=== PATIENT | male | born 1965 | race African-American/Black ===

== ENCOUNTER 2023-04-08 07:56 | Emergency (ER) | payer MEDICAID ==
[~2023-04-08] VITALS: Ht 180.3 cm; Wt 59.0 kg
[2023-04-08 08:04] VITALS: BP 127/53
[2023-04-08 08:34] LABS: CLARITY URINE CLOUDY (CLEAR); COLOR URINE YELLOW (YELLOW); KETONES URINE NEGATIVE (NEGATIVE); LEUKOCYTE ESTERASE URINE 2+ (NEGATIVE); NITRITE URINE POSITIVE (NEGATIVE); OCCULT BLOOD URINE TRACE (NEGATIVE); PROTEIN URINE NEGATIVE (NEGATIVE); SPECIFIC GRAVITY URINE 1.015 (1.005-1.030)
[2023-04-08] MEDS ORDERED: SULF1TAB48 MT (09:11)
[2023-04-08] MEDS ORDERED: SULFAMETHOXAZOLE/TRIMETHOPRIM 800/160MG TABLET PO SCH (09:15)
== END 2023-04-08 09:25 | disposition home or self-care (01) ==
LOC: ER 08:14
DX: G82.20 Paraplegia, unspecified (principal); Z98.890 Other specified postprocedural states
CPT/HCPCS: 81003; 87186; 99283

== ENCOUNTER 2023-08-09 10:42 | Emergency (ER) | payer MEDICAID ==
[~2023-08-09] VITALS: Ht 172.7 cm; Wt 66.0 kg
[~2023-08-09 10:42] MED LIST: SULF1TAB48 MT
[2023-08-09 10:59] VITALS: O2SAT 99
[2023-08-09] MEDS ORDERED: CEPHALEXIN 250MG CAPSULE PO ONE (12:00)
[2023-08-09 12:09] LABS: CLARITY URINE CLOUDY (CLEAR); COLOR URINE YELLOW (YELLOW); GLUCOSE URINE NEGATIVE (NEGATIVE); KETONES URINE NEGATIVE (NEGATIVE); LEUKOCYTE ESTERASE URINE 2+ (NEGATIVE); NITRITE URINE POSITIVE (NEGATIVE); OCCULT BLOOD URINE 1+ (NEGATIVE); PH URINE 7.5 (4.5-8.0); PROTEIN URINE TRACE (NEGATIVE); SPECIFIC GRAVITY URINE 1.018 (1.005-1.030); UROBILINOGEN URINE 0.2 E.U./dL (0.2-1.0)
[2023-08-09] MEDS ORDERED: CEPH500T MT (12:29)
[2023-08-09 12:59] LABS: BACTERIA URINE 4+; SQUAMOUS EPITHELIAL CELL URINE FEW /lpf (RARE/1+)
[2023-08-09 13:00] LABS: RBC URINE 0-2 /hpf (0-2)
[2023-08-09 13:11] VITALS: BP 112/68; PULSE 79; RESP 18; TEMP 98
== END 2023-08-09 13:12 | disposition home or self-care (01) ==
LOC: ER 10:42
DX: N39.0 Urinary tract infection, site not specified (principal)
CPT/HCPCS: 81003; 99283

== ENCOUNTER 2023-08-27 08:01 | Emergency (ER) | payer MEDICAID ==
[~2023-08-27] VITALS: Ht 172.7 cm; Wt 64.0 kg
[~2023-08-27 08:01] MED LIST changes: +CEPH500T MT
[2023-08-27 08:02] VITALS: PULSE 86
[2023-08-27 08:03] VITALS: BP 117/79; RESP 16; TEMP 98.4; O2SAT 100
[2023-08-27] MEDS ORDERED: NITR-87 MT (08:48)
[2023-08-27 08:51] LABS: CLARITY URINE CLOUDY (CLEAR); COLOR URINE YELLOW (YELLOW); GLUCOSE URINE NEGATIVE (NEGATIVE); KETONES URINE NEGATIVE (NEGATIVE); LEUKOCYTE ESTERASE URINE 2+ (NEGATIVE); NITRITE URINE NEGATIVE (NEGATIVE); OCCULT BLOOD URINE 1+ (NEGATIVE); PROTEIN URINE TRACE (NEGATIVE); SPECIFIC GRAVITY URINE 1.016 (1.005-1.030)
[2023-08-27 09:28] LABS: BACTERIA URINE 4+; SQUAMOUS EPITHELIAL CELL URINE 1+ /lpf (RARE/1+)
[2023-08-27 09:29] LABS: WBC URINE 25-50 /hpf (0-2)
== END 2023-08-27 08:58 | disposition home or self-care (01) ==
LOC: ER 08:01
DX: N39.0 Urinary tract infection, site not specified (principal)
CPT/HCPCS: 81003; 87077; 87186; 99283

== ENCOUNTER 2023-10-31 08:36 | Emergency (ER) | payer MEDICAID ==
[~2023-10-31] VITALS: Ht 172.7 cm; Wt 66.0 kg
[~2023-10-31 08:36] MED LIST changes: +NITR-87 MT
[2023-10-31 08:54] VITALS: O2SAT 98
[2023-10-31 10:18] LABS: CLARITY URINE TURBID (CLEAR); COLOR URINE YELLOW (YELLOW); GLUCOSE URINE NEGATIVE (NEGATIVE); KETONES URINE NEGATIVE (NEGATIVE); LEUKOCYTE ESTERASE URINE 3+ (NEGATIVE); NITRITE URINE NEGATIVE (NEGATIVE); OCCULT BLOOD URINE 2+ (NEGATIVE); PH URINE 7.5 (4.5-8.0); PROTEIN URINE 2+ (NEGATIVE); SPECIFIC GRAVITY URINE 1.016 (1.005-1.030)
[2023-10-31] MEDS ORDERED: LEVO750T68 MT (10:30)
[2023-10-31] MEDS ORDERED: LEVOFLOXACIN 250MG TABLET PO ONE (10:30)
[2023-10-31 10:59] VITALS: BP 128/78; PULSE 70; RESP 16; TEMP 98.6
[2023-10-31 12:09] LABS: SQUAMOUS EPITHELIAL CELL URINE 1+ /lpf (RARE/1+); WBC URINE TNTC /hpf (0-2)
[2023-10-31 12:11] LABS: BACTERIA URINE 4+
== END 2023-10-31 11:12 | disposition home or self-care (01) ==
LOC: ER 08:36
DX: N39.0 Urinary tract infection, site not specified (principal); B96.20 Unspecified Escherichia coli [E. coli] as the cause of diseases classified elsewhere; Z16.39 Resistance to other specified antimicrobial drug; Z98.890 Other specified postprocedural states
CPT/HCPCS: 81003; 87077; 87186; 99283

== ENCOUNTER 2024-01-21 15:45 | Emergency (ER) | payer MEDICAID ==
[~2024-01-21] VITALS: Ht 172.7 cm; Wt 61.0 kg
[~2024-01-21 15:45] MED LIST changes: +LEVO750T68 MT
[2024-01-21 15:47] VITALS: O2SAT 98
[2024-01-21 16:14] LABS: CLARITY URINE TURBID (CLEAR); COLOR URINE YELLOW (YELLOW); GLUCOSE URINE NEGATIVE (NEGATIVE); KETONES URINE NEGATIVE (NEGATIVE); LEUKOCYTE ESTERASE URINE 3+ (NEGATIVE); NITRITE URINE POSITIVE (NEGATIVE); OCCULT BLOOD URINE 3+ (NEGATIVE); PROTEIN URINE 2+ (NEGATIVE); SPECIFIC GRAVITY URINE 1.016 (1.005-1.030)
[2024-01-21 16:27] LABS: BACTERIA URINE 2+; RBC URINE 25-50 /hpf (0-2); SQUAMOUS EPITHELIAL CELL URINE 1+ /lpf (RARE/1+); WBC URINE 50-100 /hpf (0-2); YEAST URINE NONE SEEN
[2024-01-21] MEDS ORDERED: LEVO750T68 MT (16:57)
[2024-01-21 17:06] VITALS: BP 131/76; PULSE 76; RESP 12; TEMP 98.3
== END 2024-01-21 17:07 | disposition home or self-care (01) ==
LOC: ER 15:45
DX: N39.0 Urinary tract infection, site not specified (principal)
CPT/HCPCS: 81003; 99283

== ENCOUNTER 2024-04-09 13:53 | Emergency (ER) | payer MEDICAID ==
[~2024-04-09] VITALS: Ht 172.7 cm; Wt 67.0 kg
[2024-04-09 14:13] VITALS: O2SAT 98
[2024-04-09 16:15] LABS: CLARITY URINE TURBID (CLEAR); COLOR URINE YELLOW (YELLOW); GLUCOSE URINE NEGATIVE (NEGATIVE); KETONES URINE NEGATIVE (NEGATIVE); LEUKOCYTE ESTERASE URINE 2+ (NEGATIVE); NITRITE URINE POSITIVE (NEGATIVE); OCCULT BLOOD URINE NEGATIVE (NEGATIVE); PH URINE 7.5 (4.5-8.0); PROTEIN URINE NEGATIVE (NEGATIVE); SPECIFIC GRAVITY URINE 1.018 (1.005-1.030)
[2024-04-09 16:33] LABS: BACTERIA URINE 4+; RBC URINE 0-2 /hpf (0-2); SQUAMOUS EPITHELIAL CELL URINE FEW /lpf (RARE/1+)
[2024-04-09 16:34] LABS: WBC URINE 50-100 /hpf (0-2)
[2024-04-09] MEDS ORDERED: CEPH500T MT (18:52)
[2024-04-09] MEDS: CEFTRIAXONE SODIUM 1G VIAL IM ONE (18:59)
[2024-04-09 19:07] VITALS: BP 6/67; PULSE 64; RESP 18; TEMP 97.9
== END 2024-04-09 19:09 | disposition home or self-care (01) ==
LOC: ER 13:53
DX: N39.0 Urinary tract infection, site not specified (principal); Z98.890 Other specified postprocedural states
CPT/HCPCS: 99283; 81003; 87086; 87186; 87077; 96372; J0696

== ENCOUNTER 2024-07-30 13:46 | Emergency (ER) | payer MEDICAID ==
[~2024-07-30] VITALS: Ht 172.7 cm; Wt 62.0 kg
[2024-07-30 14:15] VITALS: TEMP 98.1; O2SAT 99
[2024-07-30 16:49] LABS: CLARITY URINE CLOUDY (CLEAR); COLOR URINE YELLOW (YELLOW); GLUCOSE URINE NEGATIVE (NEGATIVE); KETONES URINE NEGATIVE (NEGATIVE); LEUKOCYTE ESTERASE URINE 2+ (NEGATIVE); NITRITE URINE POSITIVE (NEGATIVE); OCCULT BLOOD URINE 1+ (NEGATIVE); PROTEIN URINE NEGATIVE (NEGATIVE); SPECIFIC GRAVITY URINE 1.017 (1.005-1.030)
[2024-07-30] MEDS ORDERED: CEFP200T13 MT (17:09)
[2024-07-30] MEDS ORDERED: PHEN-910 MT (17:10)
[2024-07-30 17:19] VITALS: BP 112/70; PULSE 80; RESP 15; O2SAT 99
[2024-07-30 17:35] LABS: BACTERIA URINE 4+; SQUAMOUS EPITHELIAL CELL URINE FEW /lpf (RARE/1+)
== END 2024-07-30 17:19 | disposition home or self-care (01) ==
LOC: ER 13:46
DX: N39.0 Urinary tract infection, site not specified (principal); Z79.899 Other long term (current) drug therapy; Z98.890 Other specified postprocedural states
CPT/HCPCS: 81003; 87086; 87186; 87077; 99283; Z7610

== ENCOUNTER 2025-05-19 15:02 | Emergency (ER) | payer MEDICAID ==
[~2025-05-19] VITALS: Ht 172.7 cm; Wt 65.0 kg
[~2025-05-19 15:02] MED LIST changes: +CEFP200T13 MT; +PHEN-910 MT
[2025-05-19 15:03] VITALS: O2SAT 100
[2025-05-19 15:13] VITALS: BP 144/77; PULSE 78; RESP 18; TEMP 37.1; O2SAT 100
[2025-05-19 16:08] LABS: CLARITY URINE CLOUDY (CLEAR); COLOR URINE YELLOW (YELLOW)
[2025-05-19 16:09] LABS: GLUCOSE URINE NEGATIVE (NEGATIVE); KETONES URINE NEGATIVE (NEGATIVE); LEUKOCYTE ESTERASE URINE 2+ (NEGATIVE); NITRITE URINE NEGATIVE (NEGATIVE); OCCULT BLOOD URINE TRACE (NEGATIVE); PH URINE 6.5 (4.5-8.0); PROTEIN URINE NEGATIVE (NEGATIVE); UROBILINOGEN URINE 0.2 E.U./dL (0.2-1.0)
[2025-05-19 16:16] LABS: BACTERIA URINE 2+; RBC URINE NONE SEEN /hpf (0-2); SQUAMOUS EPITHELIAL CELL URINE FEW /lpf (RARE/1+); WBC URINE 15-25 /hpf (0-2)
[2025-05-19] MEDS ORDERED: SULF1TAB48 MT (16:22)
== END 2025-05-19 16:39 | disposition home or self-care (01) ==
LOC: ER 15:02
DX: N39.0 Urinary tract infection, site not specified (principal); Z79.899 Other long term (current) drug therapy; Z98.890 Other specified postprocedural states
CPT/HCPCS: 81003; 87077; 87186; 99283

== ENCOUNTER 2025-08-11 11:58 | Emergency (ER) | payer MEDICAID ==
[~2025-08-11] VITALS: Ht 172.7 cm; Wt 78.0 kg
[2025-08-11 12:36] VITALS: O2SAT 98
[2025-08-11] MEDS ORDERED: HYDR28.485 RC (14:54)
[2025-08-11 15:18] VITALS: BP 152/88; PULSE 73; RESP 16; TEMP 36.8; O2SAT 99
== END 2025-08-11 15:18 | disposition home or self-care (01) ==
LOC: ER 11:58
DX: L25.9 Unspecified contact dermatitis, unspecified cause (principal); Z98.890 Other specified postprocedural states; Z79.899 Other long term (current) drug therapy; W57.XXXA Bitten or stung by nonvenomous insect and other nonvenomous arthropods, initial encounter; X58.XXXA Exposure to other specified factors, initial encounter; Y93.89 Activity, other specified; Y92.89 Other specified places as the place of occurrence of the external cause; Y99.8 Other external cause status
CPT/HCPCS: 76536; 99284